=== PATIENT | female | born 1995 | race Caucasian/White ===

== ENCOUNTER 2020-12-13 12:14 | Inpatient (IN) | payer OTHER ==
[2020-12-13 12:57] LABS: BILIRUBIN NEGATIVE (NEGATIVE); BLOOD 1+ Ery/uL (NEGATIVE); COLOR YELLOW (YELLOW); GLUCOSE (U) NORMAL (NORMAL); LEUKOCYTES TRACE Leu/uL (NEGATIVE); NITRITE NEGATIVE (NEGATIVE); PROTEIN 2+ mg/dL (NEGATIVE); UROBILINOGEN 0.2 mg/dL (0.2-1.0)
[2020-12-13 12:58] LABS: CLARITY HAZY (CLEAR)
[2020-12-13 13:09] LABS: BACTERIA 1+; URINARY RBC RARE
[2020-12-13 13:29] LABS: URINE CREATININE 26.26 mg/dL (29.00-226.00); URINE TOTAL PROTEIN-RANDOM 236.5 mg/dL (<11.9)
[2020-12-13 13:37] LABS: ALBUMIN 2.5 g/dL (3.4-5.0); BILIRUBIN - TOTAL 0.4 mg/dL (0.2-1.0); BUN/CREAT RATIO (CALC) 8.8 RATIO; CREATININE 0.68 mg/dL (0.51-0.95); GLOBULIN (CALCULATION) 3.5 g/dL; HCT 35.3 % (37.0-47.0); HGB 12.1 g/dl (12.5-16.0); MCH 31.3 pg (25.0-31.0); MCHC 34.3 g/dL (32.0-36.0); MCV 91.5 fL (78.0-100.0); POTASSIUM 3.9 mmol/L (3.5-5.1); RBC 3.86 M/uL (4.20-5.40); RDW 13.2 % (11.5-14.0); URIC ACID 7.2 mg/dL (2.6-6.2); WBC 9.6 K/uL (4.0-10.5)
[2020-12-15 05:31] LABS: HCT 26.7 % (37.0-47.0); HGB 9.2 g/dl (12.5-16.0); MCH 31.8 pg (25.0-31.0); MCHC 34.5 g/dL (32.0-36.0); MCV 92.4 fL (78.0-100.0); MPV 10.5 fL (6.0-9.5); RBC 2.89 M/uL (4.20-5.40); RDW 13.3 % (11.5-14.0)
[2020-12-15 05:43] LABS: WBC 21.4 K/uL (4.0-10.5)
== END 2020-12-16 15:15 | disposition home or self-care (01) | DRG 806 ==
LOC: FOB 12:14 → FOD 14:36 → FOB 14:37
PROVIDERS: Obstetrics & Gynecology; ADMIT Obstetrics & Gynecology
PROC: 10E0XZZ Delivery of Products of Conception, External Approach (ICD-10-PCS; principal; 2020-12-14)
PROC: 0UQMXZZ Repair Vulva, External Approach (ICD-10-PCS; 2020-12-14)
DX: O14.14 Severe pre-eclampsia complicating childbirth (principal); D62 Acute posthemorrhagic anemia; Z37.0 Single live birth; O69.81X0 Labor and delivery complicated by cord around neck, without compression, not applicable or unspecified; O72.1 Other immediate postpartum hemorrhage; Z3A.36 36 weeks gestation of pregnancy; R63.6 Underweight; O99.03 Anemia complicating the puerperium; Z20.822 Contact with and (suspected) exposure to COVID-19; O43.193 Other malformation of placenta, third trimester; O99.892 Other specified diseases and conditions complicating childbirth; O70.0 First degree perineal laceration during delivery; L72.3 Sebaceous cyst; Z28.3 Underimmunization status
CPT/HCPCS: 36415; 80053; 81001; 82570; 83615; 84112; 84156; 84550; 86850; 86900; 86901; J0610; J0702; J2300; J2405; J2916; J3475; J7120; U0002